=== PATIENT | female | born 1970 | race Two or more races ===

== ENCOUNTER 2021-11-24 02:29 | Emergency (ER) | payer BC ==
[~2021-11-24] VITALS: Ht 170.2 cm; Wt 72.6 kg
--- NOTE | 2021-11-24 02:50 | NUR ---
Pt brought straight bck to room ED2a via waiting. able to observe pt closely for strange behavior. Addendum: 11/24/21 at 2 by [email or web address] Pt is complaining of mild to moderate REYES pain in the frontal lobe Addendum: 11/24/21 at 6 by [email or web address] pt immediately connected to bedside monitor and inital vs obtained. VSS, PE WNL, 93/60, 96%Ra, 90bpm, Pt is stable and doing fine.
[2021-11-24 03:27] LABS: CREATININE 0.5 mg/dL (0.6-1.3); POTASSIUM 4.1 mmol/L (3.5-5.1)
--- NOTE | 2021-11-24 03:35 | NUR ---
EDMD at bedside to assess pts condition per EDMD fe tip has goto be desighted. lol
[2021-11-24 03:44] LABS: BILIRUBIN,DIRECT 0.1 mg/dL (0.0-0.2); BILIRUBIN,TOTAL 0.2 mg/dL (0.2-1.0); TOTAL PROTEIN, SERUM 6.6 g/dL (6.4-8.2)
--- NOTE | 2021-11-24 03:58 | NUR ---
Covid test performed, sample collected and sent to lab.
[2021-11-24 04:17] LABS: MAGNESIUM 1.9 mg/dL (1.8-2.4)
[2021-11-24 04:19] LABS: THYROID STIMULATING HORMONE 1.656 mIU/mL (0.358-3.740)
--- NOTE | 2021-11-24 04:28 | NUR ---
Pt is resting comfortably patiently awaiting for all the blood work to be completed so that EDMD could discuss dispo with her and let her know if she is a good candidate to be allowed here. EDMD calling lab to inquire about patientslh
[2021-11-24 04:42] LABS: HEMATOCRIT 35.6 % (31.2-41.9); MEAN CORPUSCULAR HEMOGLOBIN 29.6 uug (24.7-32.8); MEAN CORPUSCULAR VOLUME 89.4 fL (75.5-95.3); PLATELET COUNT (AUTO) 243 K/uL (179-408)
--- NOTE | 2021-11-24 04:52 | NUR ---
Per EDMD, RT called to try to induce a sputum culture and obtain an ABG if poss.
[2021-11-24 04:54] LABS: *BILIRUBIN,URIN NEGATIVE (NEGATIVE); *CLARITY,URINE CLEAR (CLEAR); *COLOR,URINE YELLOW (YELLOW); *KETONES,URINE NEGATIVE (NEGATIVE); *UROBILINOGEN,URINE 0.2 E.U./dl (NORMAL); LEUKOCYTE ESTERASE ,URINE TRACE (NEGATIVE); NITRITE, URINE NEGATIVE (NEGATIVE); PH,URINE 7.5 (5.0-8.0); UGLUCOSE NEGATIVE (NEGATIVE)
[2021-11-24 04:55] LABS: *BLOOD, URINE TRACE (NEGATIVE)
--- NOTE | 2021-11-24 04:59 | NUR ---
EDMD at bedside to discuss lab findings and dispo with pt and pt's mother.
[2021-11-24] MEDS ORDERED: CEFTRIAXONE 1 G in IV DEXTROSE 5% 50 ML IV ONE (05:00)
[2021-11-24] MEDS ORDERED: IV NORMAL SALINE 1000 ML BAG IV ONE (05:00)
[2021-11-24] MEDS ORDERED: AZITHROMYCIN IV 500 MG in IV DEXTROSE 5% 250 ML IV ONE (05:00)
[2021-11-24] MEDS ORDERED: CEFU500T66 PO (05:20)
[2021-11-24] MEDS ORDERED: ALBU6.7H9 INH (05:20)
[2021-11-24] MEDS ORDERED: AZIT250T13 PO (05:20)
[2021-11-24] MEDS ORDERED: CEFTRIAXONE /D5W 50ML IVPB **ER PYXIS IV ONE (05:26)
[2021-11-24] MEDS ORDERED: AZITHROMYCIN 500MG/ D5W 250ML IVPB **ER PYXIS ONLY IV ONE (05:27)
--- NOTE | 2021-11-24 05:27 | NUR ---
RT at bedside to collect sputum sample. BC x2 already drawn by lab. Sputum collected and sent with RT>
[2021-11-24] MEDS ORDERED: CHOLECALCIFEROL 1,000 UNIT TABLET ONE (05:29)
[2021-11-24] MEDS ORDERED: OXYCODONE/APAP 5-325 MG TABLET PO ONE (05:30)
[2021-11-24] MEDS ORDERED: OXYCODONE/APAP 5-325 MG TABLET ONE (05:33)
--- NOTE | 2021-11-24 05:55 | NUR ---
20g angio inserted into Rt AC without difficulty. 1LNS bolus hung and running. Initiated abx therapy, Rocephin completed, zithromax running currently, approx 60% complete. Pt tolerating well.
--- NOTE | 2021-11-24 06:58 | NUR ---
Pt given dc instructions and med info and told that if they have any questions, they can ask the pharmacist. Pt confirmed understanding of aftercare instuctions, and promised to follow orders closely and take meds as directed. Pt has excellent VS, 103/55, 78bpm, 98% RA, 16 rpm. Pt oxygenating and perfusing well. Denies any pain, sob, dizziness, n/v or discomfort. No s/sxof distress present.
[2021-11-24 07:07] VITALS: BP 105/71
[2021-11-24 07:35] LABS: BACTERIA,URINE FEW /HPF (NONE SEEN)
[2021-11-24 07:36] LABS: MUCUS,URINE NONE SEEN /LPF (0-FEW); RBC,URINE 0-3 /HPF (0-3); SQUAMOUS EPITHELIAL CELL,UR FEW /HPF (NONE SEEN)
[2021-11-24] MEDS ORDERED: CHOLECALCIFEROL 1,000 UNIT TABLET PO SCH (09:00)
== END 2021-11-24 06:58 | disposition home or self-care (01) ==
LOC: ER 02:35
DX: J18.9 Pneumonia, unspecified organism (principal); Z20.822 Contact with and (suspected) exposure to COVID-19; R53.82 Chronic fatigue, unspecified; R94.8 Abnormal results of function studies of other organs and systems; R00.0 Tachycardia, unspecified; E03.9 Hypothyroidism, unspecified; Z79.890 Hormone replacement therapy
CPT/HCPCS: 36415; 71045; 80048; 80076; 81001; 82550; 83735; 83880; 84145; 84443; 84484; 85025; 85379; 87040 ×2; 87070; 87426; 93005; 96365; 96368; 99285; J0456; J0696; 70030-TC; A4663; J7030

== ENCOUNTER 2021-12-04 18:27 | Inpatient (IN) | payer BC ==
[~2021-12-04] VITALS: Ht 170.2 cm; Wt 77.1 kg
[~2021-12-04 18:27] MED LIST: ALBU6.7H9 INH; AZIT250T13 PO; CEFU500T66 PO
[2021-12-04] MEDS ORDERED: SIMV-46 PO (18:42)
[2021-12-04] MEDS ORDERED: FLUO10TA PO (18:42)
[2021-12-04 19:25] LABS: HEMATOCRIT 38.8 % (31.2-41.9); MEAN CORPUSCULAR HEMOGLOBIN 30.3 uug (24.7-32.8); MEAN CORPUSCULAR VOLUME 89.9 fL (75.5-95.3); PLATELET COUNT (AUTO) 275 K/uL (179-408)
--- NOTE | 2021-12-04 19:33 | NUR ---
Assumed care of patient from day shift RN Brandyn. Patient AAOx4. In no acute distress. Dr. Castanon on bedside at this time.
[2021-12-04 19:34] LABS: CARBON DIOXIDE 32 mmol/L (21-32); CHLORIDE 103 mmol/L (98-107); CREATININE 0.7 mg/dL (0.6-1.3); GLUCOSE 130 mg/dL (74-106); POTASSIUM 4.2 mmol/L (3.5-5.1); UREA NITROGEN, BLOOD 19 mg/dL (7-18)
[2021-12-04 19:50] LABS: ALANINE AMINOTRANSFERASE 43 U/L (14-59); ALKALINE PHOSPHATASE 98 U/L (50-136); ASPARTATE AMINOTRANSFERASE 28 U/L (15-37); BILIRUBIN,DIRECT 0.1 mg/dL (0.0-0.2); BILIRUBIN,TOTAL 0.2 mg/dL (0.2-1.0); TOTAL PROTEIN, SERUM 7.5 g/dL (6.4-8.2)
[2021-12-04 20:36] LABS: *BILIRUBIN,URIN NEGATIVE (NEGATIVE); *BLOOD, URINE NEGATIVE (NEGATIVE); *CLARITY,URINE CLEAR (CLEAR); *COLOR,URINE YELLOW (YELLOW); *KETONES,URINE NEGATIVE (NEGATIVE); *UROBILINOGEN,URINE 0.2 E.U./dl (NORMAL); LEUKOCYTE ESTERASE ,URINE NEGATIVE (NEGATIVE); NITRITE, URINE NEGATIVE (NEGATIVE); UGLUCOSE NEGATIVE (NEGATIVE)
[2021-12-04 20:46] LABS: *AMPHETAMINE, URINE NEGATIVE (NEGATIVE); *CANNABINOID, URINE NEGATIVE (NEGATIVE); *COCCAINE, URINE NEGATIVE (NEGATIVE); *OPIATE, URINE POSITIVE (NEGATIVE); *PHENCYCLIDINE SCREEN,URINE NEGATIVE (NEGATIVE)
--- NOTE | 2021-12-05 00:07 | NUR ---
[facility] panel call placed, spoke to Brenna, she stated she will get a hold of [facility] for admitting.
--- NOTE | 2021-12-05 00:09 | NUR ---
Dr. Castanon on bedside.
--- NOTE | 2021-12-05 00:31 | NUR ---
Dr. Castanon on panel call with [facility]. Patient accepted for admission to telemetry unit Dx [facility].
--- NOTE | 2021-12-05 01:30 | NUR ---
Received report for oncoming admission to Telemetry from ER nurse
[2021-12-05] MEDS ORDERED: ONDANSETRON 4 MG/2 ML VIAL IV PRN (01:45)
[2021-12-05] MEDS ORDERED: MAG HYDROX/AL HYDROX/SIMETH 30 ML LIQUID UDC PO PRN (01:45)
[2021-12-05] MEDS ORDERED: DOCUSATE SODIUM 100 MG CAPSULE PO PRN (01:45)
[2021-12-05] MEDS ORDERED: NITROGLYCERIN 0.4 MG/TAB BOTTLE SL PRN (01:45)
[2021-12-05] MEDS ORDERED: ACETAMINOPHEN 325 MG TABLET PO PRN (01:45)
[2021-12-05] MEDS ORDERED: MORPHINE SULFATE 2 MG/1 ML DISP.SYRIN IV PRN (01:45)
[2021-12-05 02:00] VITALS: BP 136/61
--- NOTE | 2021-12-05 02:00 | NUR ---
Pt. admitted to Telemetry unit, room 319, under care of [facility]. Belongs List completed.
--- NOTE | 2021-12-05 02:00 | NUR ---
Patient admitted to telemetry, primary diagnosis chest pain, secondary diagnosis NSTEMI. patient denies any chest pain or palpitations at this time. Placed on Telemetry and is on NSR with HR in 60's. Patient alert and oriented x4, is a good historian. Her gait is steady but advised MD ordered bed rest. On Ra, no SOB, 02 sats 99%. Safety measures initiated. Call light within reach.
[2021-12-05 04:00] VITALS: BP 130/68
[2021-12-05] MEDS ORDERED: ALBUTEROL SULFATE 2.5 MG/3 ML NEBU NEB SCH (04:00)
[2021-12-05 06:23] LABS: HEMATOCRIT 35.4 % (31.2-41.9); MEAN CORPUSCULAR HEMOGLOBIN 29.7 uug (24.7-32.8); PLATELET COUNT (AUTO) 225 K/uL (179-408)
[2021-12-05 07:00] LABS: CREATININE 0.5 mg/dL (0.6-1.3); POTASSIUM 4.3 mmol/L (3.5-5.1)
--- NOTE | 2021-12-05 07:05 | NUR ---
Patient slept well. No further chest pain. Tele is NSR, 71.
[2021-12-05 07:10] LABS: BILIRUBIN,TOTAL 0.3 mg/dL (0.2-1.0); MAGNESIUM 2.1 mg/dL (1.8-2.4); PHOSPHOROUS 4.7 mg/dL (2.5-4.9); TOTAL PROTEIN, SERUM 6.3 g/dL (6.4-8.2)
[2021-12-05 07:50] LABS: THYROID STIMULATING HORMONE 3.051 mIU/mL (0.358-3.740)
[2021-12-05] MEDS ORDERED: ENOXAPARIN SODIUM 40 MG/0.4 ML DISP.SYRIN SQ SCH (09:00)
[2021-12-05] MEDS ORDERED: ASPIRIN 81 MG TAB.CHEW PO SCH (09:00)
[2021-12-05] MEDS ORDERED: METOPROLOL SUCCINATE XL 25 MG TAB.SR.24H PO SCH (09:00)
[2021-12-05] MEDS ORDERED: FLUOXETINE HCL 10 MG CAPSULE PO SCH (09:00)
[2021-12-05] MEDS ORDERED: METO-356 PO (09:07)
--- NOTE | 2021-12-05 10:00 | NUR ---
new discharge orders, reviewed all discharge orders with and patient, patient and understand MD orders, reminded to continue with current medication regimen and with new metropolol order, reminded to f/u with primary health care provider in 1 week, 2)f/u with service station cashier as scheduled. inventory list completed and signed by patient. patient requesting medical record information, form to release information given and filled and taken to medical records.
--- NOTE | 2021-12-05 11:00 | NUR ---
IV site removed minimal bleeding noted. all paperwork given to patient.
[2021-12-05 11:09] VITALS: BP 113/61
--- NOTE | 2021-12-05 11:10 | NUR ---
patient taken downstairs safely, upon d/c v/s wnl, no c/o chest pain at this time.
[2021-12-05] MEDS ORDERED: SIMVASTATIN 20 MG TABLET PO SCH ×2 (18:00→21:00)
== END 2021-12-05 11:10 | disposition home or self-care (01) | DRG 310 ==
LOC: ER 18:30 → TELE3 12-05 01:45
PROVIDERS: ADMIT Family Medicine; ATTEND Family Medicine
DX: I47.1 Supraventricular tachycardia (principal); E03.9 Hypothyroidism, unspecified; F17.210 Nicotine dependence, cigarettes, uncomplicated; E78.5 Hyperlipidemia, unspecified; F32.A Depression, unspecified; Z87.01 Personal history of pneumonia (recurrent); F43.9 Reaction to severe stress, unspecified; Z20.822 Contact with and (suspected) exposure to COVID-19
CPT/HCPCS: 36415; 71045; 83605; 83735; 84100; 84443; 84484; 85025; 85730; 87040; 93005; 94640; A4663; G0378; J1650